=== PATIENT | female | born 1985 | race Caucasian/White ===

== ENCOUNTER → 2016-08-08 | Day surgery (SDC) | payer BC ==
[~2016-08-08] MED LIST: ABIL5TAB6 PO; BUPIVACAINE HCL PF 0.5% 30 ML VIAL ONE; CLON1TAB PO; FLUC150T PO; HYDR-755 PO; KETOROLAC TROMETHAMINE 30 MG/ML (IVP) VIAL IV PUSH ONE; LACTATED RINGER'S 1000 ML INJ 1,000 ML ONE; LAMO200T54 PO; MIDAZOLAM HCL 2 MG/2 ML VIAL ONE; MORPHINE SULFATE 4 MG/ML INJ ONE; ONDANSETRON HCL 4 MG/2 ML VIAL IV PUSH ONE; PROPOFOL 200 MG/20 ML AMP IV ONE; ULTR50TA5 PO; ceFAZolin INJ 1,000 MG VIAL ONE
--- NOTE | 2016-08-09 19:45 | MP ---
cc: SALVATORE GONZALEZ M.D. DATE OF SURGERY 08/08/2016 PREOPERATIVE DIAGNOSIS Right ankle retained painful hardware status post open reduction internal fixation of a bimalleolar fracture. POSTOPERATIVE DIAGNOSES Right ankle retained painful hardware status post open reduction internal fixation of a bimalleolar fracture. PROCEDURE Removal of deep hardware right ankle. SURGEON Dr. Salvatore Gonzalez [employer] BEE [facility] ANESTHESIA General. ESTIMATED BLOOD LOSS Less than 50 cc. TOURNIQUET TIME Zero minutes. COMPLICATIONS None. JUSTIFICATION This patient is a 31-year-old female who sustained previous severe trauma to the right ankle which required surgical open reduction, internal fixation. She does complain of pain in regards to ankle, symptomatic hardware. The patient was evaluated by the undersigned at [facility]. She was counseled as to the risks, benefits, alternatives to the above named proposed surgical procedure. She did wish to proceed with surgery. PROCEDURE IN DETAIL A written consent obtained. The patient identified by name, taken to the operating room, placed supine on the OR table. General anesthesia was administered as well as 1 gram of IV Ancef. Right lower extremity prepped and draped using isopropyl alcohol, Hibiclens solution, DuraPrep solution. After timeout was performed a longitudinal incision was made over the lateral aspect of the right ankle. The periosteum was then elevated off the distal fibula. A screwdriver was used to remove all screws and subsequently the plate was removed. The wound was thoroughly irrigated with sterile saline solution. The deep fascia layer was closed with 0 Vicryl sutures, subcutaneous layer closed with a combination of 2-0 Vicryl and 3-0 Vicryl. The skin was closed with 3-0 nylon. Attention was turned to the medial aspect of the right ankle where a longitudinal incision was made over the medial malleolus. A rongeur was used to remove bone to expose the screw head. A screwdriver was used to remove the screw over the medial malleolus. The wound was thoroughly irrigated with sterile saline solution. The subcutaneous layer was closed with 3-0 Vicryl and skin incision closed with 3-0 nylon. Sterile dressing applied. The patient placed in well-padded splint. She tolerated the procedure well. No intraoperative complications noted. MD MATEO Oliver/FELICIA /11:41 AM /7:31 PM
== END | disposition home or self-care (01) ==
LOC: ESDC 09:26
PROVIDERS: ATTEND Orthopaedic Surgery Sports Medicine
DX: T84.84XA Pain due to internal orthopedic prosthetic devices, implants and grafts, initial encounter (principal); S82.841D Displaced bimalleolar fracture of right lower leg, subsequent encounter for closed fracture with routine healing
CPT/HCPCS: 01480; 20680; 73600; 76000; J0690; J1885; J2250; J2270; J2405; J3010; J7120